=== PATIENT | male | born 1965 | race Caucasian/White ===

== ENCOUNTER 2017-08-10 22:04 | Emergency (ER) | payer SELFPAY ==
[2017-08-11 01:25] VITALS: BP 131/92
== END 2017-08-11 01:25 | disposition home or self-care (01) ==
LOC: ED 22:04
DX: R05 Cough (principal); Z88.0 Allergy status to penicillin

== ENCOUNTER 2018-09-12 17:08 | Emergency (ER) | payer MEDICAID ==
[~2018-09-12] VITALS: Ht 177.8 cm; Wt 76.4 kg
[2018-09-12 17:24] VITALS: Ht 177.8 cm; Wt 76.4 kg
[2018-09-12 17:47] VITALS: BP 122/77
== END 2018-09-12 17:47 | disposition home or self-care (01) ==
LOC: ED 17:08
DX: L50.8 Other urticaria (principal); S40.861A Insect bite (nonvenomous) of right upper arm, initial encounter; R10.30 Lower abdominal pain, unspecified; Z88.0 Allergy status to penicillin; W57.XXXA Bitten or stung by nonvenomous insect and other nonvenomous arthropods, initial encounter; Y93.89 Activity, other specified; Y92.89 Other specified places as the place of occurrence of the external cause; Y99.8 Other external cause status